=== PATIENT | female | born 1960 | race Two or more races ===

== ENCOUNTER 2024-12-01 00:57 | Emergency (ER) | payer OTHER ==
[~2024-12-01] VITALS: Ht 170.2 cm; Wt 53.0 kg
--- NOTE | 2024-12-01 02:09 | ED.PDOC ---
Musculoskeletal HPI Comments 64-year-old female who presents stating she is here for hospital admission for treatment of left clavicle fracture which occurred on November 21, 2024. She reports being sent from her orthopedics office in [place], [place] for hospital admission to received surgery by orthopedic surgeon Ray Spain MD. Only significant history of previous right knee surgery and tobacco cigarettes use. She denies having any acute symptoms at this time. Chief Complaint: Upper Extremity Time Seen by MD: 01:50 Reviewed Notes: Nurses Notes, Medications, Allergies Allergies: Coded Allergies: NO KNOWN ALLERGIES (Unverified , 12/01/24) Information Source: Patient Mode of Arrival: Ambulatory Review of Systems: REVIEW OF SYSTEMS: No fever, no chills, HEENT: No neck pain, no blurred vision Cardiac: No chest pain. No palpitations. Lungs: No shortness of breath, GI: No abdominal pain, no vomiting Musculoskeletal: No joint pain , no back pain Skin: No rash, no wound Neuro: No headache, no dizziness, no syncope Vital Signs Vital Signs Date Time Temp Pulse Resp B/P (MAP) Pulse Ox O2 Delivery O2 Flow Rate FiO2 12/01/24 07:58 129/94 12/01/24 06:46 97.4 67 21 98 97.4 12/01/24 05:08 Room Air Physical Exam General: Awake, alert and oriented. No acute distress. Skin: Skin in warm, dry and intact without rashes or lesions. HEENT: The head is normocephalic and atraumatic. Conjunctivae are clear without exudates or hemorrhage. Sclera is non-icteric. Neck: Normal range of motion. No JVD. Cardiac: Regular rate Respiratory: No signs of respiratory distress. No Stridor. Extremities: Left upper extremity in sling Neurological: The patient is awake, alert and oriented to person, place, and time with normal speech. Speech is clear. There is no facial asymmetry. Psychiatric: Appropriate mood and affect. Good judgement and insight. Past Medical History PAST MEDICAL HISTORY: Denies Surgical History (Other): Right knee surgery [employer] [employer] History: No Pertinent [employer] [facility] [employer] History Social History Smoker: Cigarettes Alcohol: Denies ETOH Use Drugs: Denies Drug Use Lives In: Home Was a procedure done? Was a procedure done?: No Differential Diagnosis EXT Differential Diagnosis: Fracture X-Ray, Labs, Meds, VS Vital Signs Date Time Temp Pulse Resp B/P (MAP) Pulse Ox O2 Delivery O2 Flow Rate FiO2 12/01/24 07:58 129/94 12/01/24 06:46 97.4 67 21 162/97 (118) 98 97.4 12/01/24 06:45 162/97 12/01/24 05:08 97.8 65 21 157/107 (124) 98 97.8 12/01/24 05:08 65 21 98 Room Air 12/01/24 01:15 98.7 74 18 179/107 (131) 97 98.7 Lab Test 12/01/24 05:06 12/01/24 02:24 Range/Units Urine Color Light-yellow Yellow Urine Clarity Clear Clear Urine pH 5.5 5.0-9.0 Urine Specific [place] 1.015 1.001-1.035 Urine Protein Negative Negative Urine Ketones Negative Negative Urine Blood 1+ H Negative /uL Urine Nitrite Negative Negative Urine Bilirubin Negative Negative Urine Urobilinogen Normal Negative mg/dL Urine Leukocyte Esterase 1+ Negative /uL Urine RBC 3 0 - 4 /hpf Urine Microscopic WBC 6 H 0-5 /HPF Urine Squamous Epithelial Cells Few <5 /hpf Urine Bacteria Few H None Seen /hpf Urine Glucose Normal Normal mg/dL White Blood Count 11.6 H 4.4-10.8 10^3/uL Red Blood Count 4.31 4.0-5.20 10^6/uL Hemoglobin 14.4 12.2-16.2 g/dL Hematocrit 42.0 36.0-46.0 % Mean Corpuscular Volume 97.3 80.0-100.0 fL Mean Corpuscular Hemoglobin 33.3 H 28.0-32.0 pg Mean Corpuscular Hemoglobin Concent 34.2 32.0-36.0 g/dL Red Cell Distribution Width 14.1 11.8-14.3 % Platelet Count 371 140-450 10^3/uL Mean Platelet Volume 7.1 6.9-10.8 fL Neutrophils (%) (Auto) 54.4 37.0-80.0 % Lymphocytes (%) (Auto) 35.5 10.0-50.0 % Monocytes (%) (Auto) 5.5 0.0-12.0 % Eosinophils (%) (Auto) 3.7 0.0-7.0 % Basophils (%) (Auto) 0.9 0.0-2.0 % Neutrophils # (Auto) 6.3 1.6-8.6 10 ^3/uL Lymphocytes # (Auto) 4.1 0.4-5.4 10 ^3/uL Monocytes # (Auto) 0.6 0-1.3 10 ^3/uL Eosinophils # (Auto) 0.4 0-0.8 10 ^3/uL Basophils # (Auto) 0.1 0-0.2 10 ^3/uL Nucleated Red Blood Cells 0.0 % Prothrombin Time 10.3 9.3-11.8 sec Prothrombin Time INR 0.97 0.9-1.15 Sodium Level 140 136-145 mmol/L Potassium Level 4.2 3.5-5.1 mmol/L Chloride Level 107 98-107 mmol/L Carbon Dioxide Level 26 20-31 mmol/L Anion Gap 7 5-15 Blood Urea Nitrogen 9 9-23 mg/dL Creatinine 0.83 0.550-1.02 mg/dL Glomerular Filtration Rate Calc 79 >90 mL/min BUN/Creatinine Ratio 10.8 10.0-20.0 Serum Glucose 102 74-106 mg/dL Calcium Level 9.8 8.7-10.4 mg/dL Current Medications Medications (Trade) Dose Ordered Sig/Rober Route Start Time Stop Time Status Last Admin Clonidine HCl (Catapres Tablet) 0.1 mg ONCE ONCE PO 12/01/24 06:30 12/01/24 06:31 DC 12/01/24 06:45 [place] [address] Ph: [phone] DIAGNOSTIC IMAGING Diagnostic Imaging Report : [id number] Signed PATIENT: EDDIE CHOI ACCT: [id number] UNIT: [id number] : 1960 LOC: ER ROOM / BED: / AGE / SEX: 64 / F ADM STATUS: REG ER SERVICE [id number] ORDERING PHYSICIAN: TOYIN PATEL MD PROCEDURE(s): CXR1 - CHEST XRAY 1 VIEW REASON: pre-op ORDER NUMBER(s): [id number], ACCESSION NUMBER(s): [id number] CHEST RADIOGRAPH Indication: pre-op Technique: Single frontal view of the chest was obtained COMPARISON: None FINDINGS: Lines and Tubes: None Lungs: Clear Pleura: No effusion. No pneumothorax. Cardiomediastinal contours: Unremarkable Bones: Unremarkable IMPRESSION: 1. No acute disease. ATED BY: CL WALDROP MD DICTATED DATE/TIME: 12/01/24233 SIGNED BY: CL WALDROP MD SIGNED DATE/TIME: 12/01/24233 CC: Images Reviewed?: Images reviewed and evaluated by me (Chest x-ray left midshaft clavicle fracture noted) Time of 1ST Reevaluation: 02:20 Reevaluation 1ST: Unchanged Patient Education/Counseling: Other (Admission process) Family Education/Counseling: No Family Present Departure 1 Departure Time of Disposition: 21:00 Impression: Primary Impression: Fracture of left clavicle Disposition: 07 LEFT AWOL/ELOPED Condition: Stable Comments Patient eloped from the emergency department. Critical Care Note Critical Care Time?: No Stability Stability form required: No Heart Score Heart Score: Heart Score Response (Comments) Value History N/A 0 EKG N/A 0 Age N/A 0 Risk Factors N/A 0 Troponin N/A 0 Total 0 I personally scribed for TOYIN PATEL MD ([email or web address]) on 12/01/24 at 02:09. Electronically submitted by Cornelius Anderson ([email or web address]). I personally scribed for TOYIN PATEL MD ([email or web address]) on 12/01/24 at 03:05. Electronically submitted by Cornelius Anderson ([email or web address]). TOYIN PATEL MD Dec 01, 2024 02:09
--- NOTE | 2024-12-01 02:37 | DVH ---
CHEST RADIOGRAPH Indication: pre-op Technique: Single frontal view of the chest was obtained COMPARISON: None FINDINGS: Lines and Tubes: None Lungs: Clear Pleura: No effusion. No pneumothorax. Cardiomediastinal contours: Unremarkable Bones: Unremarkable IMPRESSION: 1. No acute disease.
[2024-12-01 02:45] LABS: Hematocrit 42.0 % (36.0-46.0); Hemoglobin 14.4 g/dL (12.2-16.2); Mean Corpuscular Hemoglobin 33.3 pg (28.0-32.0); Mean Corpuscular Volume 97.3 fL (80.0-100.0); Nucleated Red Blood Cells % 0.0 %
[2024-12-01 02:51] LABS: Potassium 4.2 mmol/L (3.5-5.1); Sodium 140 mmol/L (136-145)
[2024-12-01 02:52] LABS: Anion Gap 7 (5-15); Carbon Dioxide 26 mmol/L (20-31)
[2024-12-01 02:53] LABS: Calcium 9.8 mg/dL (8.7-10.4)
[2024-12-01 02:57] LABS: Glucose 102 mg/dL (74-106)
[2024-12-01 02:58] LABS: BUN/Creatinine Ratio 10.8 (10.0-20.0); Blood Urea Nitrogen 9 mg/dL (9-23); Chloride 107 mmol/L (98-107)
[2024-12-01 03:03] LABS: INR 0.97 (0.9-1.15); Prothrombin Time 10.3 sec (9.3-11.8)
[2024-12-01 06:27] LABS: Urine Protein, UAD Negative (Negative)
[2024-12-01 06:46] VITALS: BP 162/97; PULSE 67; RESP 21; TEMP 97.4; O2SAT 98
== END 2024-12-01 12:18 | disposition left against medical advice (07) ==
LOC: ER 00:57
DX: S42.022A Displaced fracture of shaft of left clavicle, initial encounter for closed fracture (principal); F17.210 Nicotine dependence, cigarettes, uncomplicated; Z98.890 Other specified postprocedural states; X58.XXXA Exposure to other specified factors, initial encounter; Y93.89 Activity, other specified; Y92.89 Other specified places as the place of occurrence of the external cause; Y99.8 Other external cause status
CPT/HCPCS: 36415; 71045; 80048; 81001; 85025; 85610; 86850; 86900; 86901; 96372